=== PATIENT | female | born 1980 | race Caucasian/White ===

== ENCOUNTER → 2017-05-14 | Outpatient (CLI) | payer OTHER | END | disposition home or self-care (01) | LOC: RAD.S 11:17 | DX: R10.33 Periumbilical pain (principal); N83.8 Other noninflammatory disorders of ovary, fallopian tube and broad ligament ==

== ENCOUNTER → 2017-05-25 | Outpatient (CLI) | payer OTHER | END | disposition home or self-care (01) | LOC: RAD.S 05-22 09:00 | DX: N83.8 Other noninflammatory disorders of ovary, fallopian tube and broad ligament (principal); R93.8 Abnormal findings on diagnostic imaging of other specified body structures; Z98.890 Other specified postprocedural states ==